=== PATIENT | male | born 2000 | race Caucasian/White ===

== ENCOUNTER 2024-04-16 02:44 | Emergency (ER) | payer BC, SELFPAY ==
--- NOTE | ~2024-04-16 | CT_ITS ---
EXAMINATION: CT abdomen pelvis w con DATE: 04/16/2024 04:47 INDICATION: Left lower quadrant abdominal pain TECHNIQUE: Computed tomography (CT) of the abdomen and pelvis was performed with 100 mL Omnipaque-350 intravenous contrast. Automated exposure control and iterative reconstruction technique were employe d. The dose-length product was 549.41 mGy-cm. COMPARISON: None FINDINGS: Lung bases are clear. Heart size normal. No pericardial or pleural effusion. Periportal edema in the liver. Gallbladder, spleen, pancreas, bilateral adrenal glands and right kidney are normal. 3 mm ston e in the distal left ureter approximately 1.5 cm from the ureterovesicular junction which results in mild left hydroureteronephrosis, delayed left nephrogram and mild periureteral stranding. Right kidne y is normal. Bowels including the appendix are normal. Decompressed bladder is unremarkable. No free intraperitoneal gas or fluid. No pathologically enlarged abdominal or pelvic lymphadenopathy. Mild th oracolumbar dextrocurvature. IMPRESSION: 1. Obstructing 3 mm distal left ureteral stone with mild left hydronephrosis. There is some perirenal stranding correlate with urinalysis to exclude associated ascending urinary tract infection. 2. Mild periportal edema which can be seen with pyelonephritis/upper urinary tract infections, acute hepatitis, congestive heart failure, cholangitis and aggressive fluid resuscitation. Reviewed, dictated and finalized at location A. BILITY BENEFITS SPECIALIST IMPRESSION: 1. Obstructing 3 mm distal left ureteral stone with mild left hydronephrosis. T here is some perirenal stranding correlate with urinalysis to exclude associate d ascending urinary tract infection. 2. Mild periportal edema which can be seen with pyelonephritis/upper urinary tr act infections, acute hepatitis, congestive heart failure, cholangitis and aggr essive fluid resuscitation.
[2024-04-16 02:45] VITALS: BP 146/83; PULSE 71; RESP 16; TEMP 36.3; O2SAT 100
[2024-04-16] MEDS: ONDANSETRON INJ 4 MG/2 ML VIAL IV PUSH (03:53)
[2024-04-16] MEDS: KETOROLAC 15 MG/ML VIAL (*BKC) IV PUSH ×2 (03:53→05:29)
[2024-04-16] MEDS: SODIUM CHLORIDE 0.9% IV 1,000 ML 999 ML IV CONT (03:53)
[2024-04-16 03:55] LABS: Basophils Percent Auto 0.5 % (0.2-1.2); Eosinophils Absolute Auto 0.1 K/mm3 (0-0.3); Eosinophils Percent Auto 0.8 % (0-4.4); Hematocrit 43.2 % (42.0-52.0); Hemoglobin 14.6 g/dL (14.0-18.0); Immature Granulocyte Absolute 0.01 K/mm3 (0.00-0.031); Immature Granulocyte Percent A 0.1 % (0-0.5); Lymphocytes Absolute Auto 3.11 K/mm3 (0.9-3.2); Lymphocytes Percent Auto 42.4 % (18.3-44.2); Mean Corpuscular HGB Conc 33.8 g/dl (32-36); Mean Corpuscular Hemoglobin 31.1 pg (26-34); Mean Corpuscular Volume 92.1 fl (80-100); Mean Platelet Volume 9.8 fl (7.4-10.4); Monocytes Absolute Auto 0.6 K/mm3 (0.1-0.6); Monocytes Percent Auto 7.8 % (2.6-8.5); Neutrophils Absolute Auto 3.6 K/mm3 (1.3-6.7); Neutrophils Percent Auto 48.4 % (45.5-73.1); Platelet Count Result 236 k/mm3 (150-375); Red Blood Count 4.69 M/mm3 (4.6-6.20); Red Cell Distribution Width 12.6 % (11.5-14.5); White Blood Count 7.3 K/mm3 (4.5-10.0)
[2024-04-16 04:03] LABS: Add Urine Microscopic? YES; Appearance Urine Clear (Clear); Bacteria Urine None Seen /hpf; Bilirubin Urine Negative (Negative); Blood Urine Non-Hemolyzed Trace (Negative); Color Urine Yellow (Yellow); Glucose Urine UA Negative (Negative); Ketones Urine Trace mg/dL (Negative); Leukocyte Esterase Ur Trace LEU/UL (Negative); Nitrate Urine Negative (Negative); Non Pathogenic Casts 0-2; Protein Urine Trace mg/dL (Negative); Specific Grav Ur 1.029 (1.001-1.035); Squamous Epithelial Cell Urine None Seen /hpf (Few); WBC Urine 21-50 /hpf (0-3); pH Urine 5.5 (5.0-9.0)
--- OUTSIDE RECORDS SUMMARY | 2024-04-16 04:06 | XMS_ITS | Clinical Summary ---
Author Organization [facility] Address [facility] [place] [address] Care Team Providers Care Customer Care Consultant Name Role Phone Manuela Holliday MD Primary Care Provider [phone] Allergies Active Allergy Reactions Criticality Noted Date Comments Diphenhydramine Other (see comment) 04/30/2014 lowers my seizure thresh hold Medications loratadine-pseudoep hedrine ER (CLARITIN-D 12 HOUR) 5-120 MG 12 hr tabletIndications:A cute sinusitis, recurrence not specified, unspecified location Take 1 tablet by mouth 2 (two) times daily. 28 tablet 0 Active Pseudoephedrine-Leonard taminophen (COLD TABLETS OR) Take by mouth as needed. Active ondansetron 4 MG disintegrating tablet Take 1 tablet (4 mg total) by mouth every 8 (eight) hours as needed for Nausea. 20 tablet 2 Active citalopram (CELEXA) 20 MG tablet Take 1 tablet (20 mg total) by mouth daily. 2 Active Active Problems No known active problems Resolved Problems Problem Noted Date Diagnosed Date Resolved Date Achilles tendonitis 06/01/2017 08/15/19 18 Plantar fasciitis 06/01/2017 08/14/2017 Immunizations Name Administration Dates Next Due Dtap (Generic) 10/15/2005, 2,2000,07/19,2000 Fluzone (IIV3, Trivalent, 0. 5 ML Prefilled Syringe) 11/07/2023 Fluzone 6 Months+ Quad (0.5 mL Prefilled Syringe) 03/11/2022,11/28/2020,12/09/2019,12/08 HPV GARDASIL 9-VALENT 02/26/2015, 015,09/25/2014,08/24 Hepatitis B (Generic Peds) 04/02/2001,2000 ,2000 Hib (Generic) 04/02/2001,2000,2000 Influenza (FluMist) 01/29/2014 Influenza (Generic) 12/14/2015 Influenza Adult (Generic) 12/25/2022,12/08/2018, 12/14/2015 MMR (Generic) 10/15/2005,07/05/2001 Menactra 09/22/2017 Meningococcal (Menactra) 09/24/2011 PFIZER COVID-19 (ORIGINAL FO RMULATION, PURPLE CAP) mRNA, LNP-S, PF, 30 MCG/0.3 ML DOSE 06/06/2020,05/16/2020 Pneumococcal (Prevnar 13) 2000,2000, 2000 Polio Ipv (Generic) 10/15/2005, 1,2000,04/02 Tdap (Boostrix) 11/19/2023 Tdap (Generic) 12/25/2022,06/16/2021,09/24/2011 Varicella (Generic) 10/15/2005,04/02/2001 Family History Relation Status Comments Father Alive Mother Alive Social History Tobacco Use Types Packs/Day Years Used Date Smoking Tobacco: Never Passive Smoke Exposure: Never Smokeless Tobacco: Never Tobacco Cessation:Counseling Given: No Comments:na Alcohol Use Standard Drinks/Week Comments Yes 0 (1 standard drink = 0.6 oz pur e alcohol) PHQ-2 Answer Date Recorded Patient Health Questionnaire-2 Score 0 11/19/2023 Sex and Gender Information Value Date Recorded Sex Assigned at Not on file 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 Gender Identity Not on file Sexual Orientation Not on file Last Filed Vital Signs Vital Sign Reading Time Taken Comments Blood Pressure 122/82 11/19/2023 4:20 PM CDT Pulse 81 11/19/2023 4:20 PM CDT Temperature 36.9 C (98.5 F) 11/19/2023 4:20 PM CDT Respiratory Rate 21 11/19/2023 4:20 PM CDT Oxygen Saturation 97% 11/19/2023 4:20 PM CDT Inhaled Oxygen Concentration - - Weight 93 kg (205 lb) 03/11/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 Height 185.4 cm (6' 1 ) 03/11/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 Body Mass Index 27.05 03/11/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 Plan of Treatment Health Maintenance Due Date Last Done Comments Annual Physical 2003 Hepatitis C 2018 COVID-19 Vaccine ( season) 2023 06/06/2020, 05/16/2020 PHQ-2 (Physician Jewett) 02/24/2024 11/19/2023 PHQ-2 (Physician Jewett) 11/18/2024 11/19/2023 DTaP, Tdap and Td Vaccines (10 - Td or Tdap) 11/18/2033 11/19/2023, 12/25/2022, 06/16/2021, Additional history exists Pneumococcal Vaccine: Pediatrics (0 to 5 Years) and At-Risk Patients (6 to 64 Years) Aged Out 2000, 2000, 2000 No longer eligible based on patient's age to complete this topic Hepatitis B Vaccines Completed 04/02/2001, 2000, 2000 HPV Vaccines Completed 02/26/2015, 04/2014, 09/25/2014, Additional history exists Meningococcal Vaccine Completed 09/22/2017, 012 Influenza Adult Completed 11/07/2023, 03/2022, 03/11/2022, Additional history exists Meningococcal B Vaccine Aged Out No l onger eligible based on patient's age to complete this topic RSV Immunizations Under 20 Months Aged Out No longer eligible based on patient's age to complete this topic Insurance [employer] Care Teams Customer Care Consultant Relationship Specialty Start Date End Date Manuela Holliday MD [address] [place] [address] PCP - General INTERNAL MEDICINE 03/21/21
--- OUTSIDE RECORDS SUMMARY | 2024-04-16 04:06 | XMS_ITS | Clinical Summary ---
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 Gender Identity Not on file Sexual Orientation Not on file Plan of Treatment Health Maintenance Due Date Last Done Comments Hepatitis C Virus (HCV) Screening 2000 Meningococcal B Immunization (1 of 2 - Standard) 2016 Hepatitis B Immunization (1 of 3 - 19+ 3-dose series) 2019 SARS-COV-2 Immunization (3 - 2023- season) 2023 06/06/2020, 05/16/2020 Respiratory Syncytial Virus (RSV) Immunization (Adult) (1 - 1-dose 75+ series) 2075 Pneumococcal Immunization Combined Aged Out 2000, 2000, 2000 No longer eligible based on patient's age to complete this topic Human Papillomavirus (HPV) Immunization Completed 02/26/2015, 10/26/2014, 09/25/2014, Additional history exists Meningococcal Immunization (ACWY) Completed 09/22/2017, 09/24/2011 Influenza Immunization Completed , 12/25/2022, 03/11/2022, Additional history exists TdaP Immunization Completed 11/19/2023, , 06/17/2021, Additional history exists Rotavirus Immunization Aged Out No lo nger eligible based on patient's age to complete this topic Care Teams Pattern Scratcher Relationship Specialty Start Date End Date Manuela Holliday MD [address] [address] PCP - General Internal Medicine 01/06/24
[2024-04-16 04:12] LABS: Alanine Aminotransferase 29 U/L (6-50); Albumin Level 4.3 g/dL (3.5-5.1); Alkaline Phosphatase 51 U/L (38-126); Anion Gap 9 mmol/L (4-12); Aspartate Amino Transferase 24 U/L (17-59); Bilirubin,Total 0.6 mg/dL (0.2-1.3); Blood Urea Nitrogen 24 mg/dL (9-20); Calcium 9.1 mg/dL (8.4-10.2); Carbon Dioxide 27 mmol/L (22-30); Chloride 105 mmol/L (98-107); Estimated CRCL calculation 114 ml/min; Estimated Glomerular Filt Rate > 60; Glucose 134 mg/dL (65-110); Lipase 88 U/L (23-300); Potassium 3.3 mmol/L (3.4-5.0); Sodium 141 mmol/L (137-145)
--- NOTE | 2024-04-16 04:30 | ED_ITS ---
HPI - Abdominal Pain General Chief Complaint: Abdominal Pain Stated Complaint: left abd pain Time Seen by Provider: 04/16/24 03:35 History of Present Illness HPI narrative: Patient is a 24-year-old male who presents emergency department this evening complaining of left lower quadrant abdominal pain which started suddenly approximately 2 hours prior to arrival. Patient denies any similar symptoms in the past, denies any previous abdominal surgeries, denies any history of kidney stones and denies any dysuria or hematuria but states that he has been having some urinary urgency. Denies any recent illness, admits 1 vomiting episode secondary to pain. Denies any fevers or chills. Related Data Allergies Allergy/AdvReac Type Severity Reaction Status Date / Time carrot Allergy Mild Rash Verified 04/16/24 03:58 APPLES Allergy Mild Rash Uncoded 04/16/24 03:58 Review of Systems 2 Review of Systems: All systems are reviewed and are negative unless stated otherwise in the HPI. Exam 2 Narrative: General: Alert, awake, afebrile, in moderate distress secondary to pain. HEENT: PERRL, no rhinorrhea, no post nasal drip, oropharynx clear. Neck: Trachea midline, no JVD, no lymphadenopathy. Cardiovascular: Regular rate and rhythm, no murmurs, rubs or gallops, no peripheral edema. Respiratory: Clear to auscultation bilaterally, no tachypnea, no wheezing, no rhonchi, no rubs, no respiratory distress. Abdomen: Soft, tenderness palpation over the left lower quadrant, nondistended, no rebound, no guarding, no peritoneal signs. Musculoskeletal: No joint swelling or deformity, normal muscle tone. Skin: No rashes or petechia, no signs of infection. Psychiatric: Alert and oriented, normal behavior and judgment for situation. Neurological: Alert and oriented to person, place, and time. Follows all commands. No focal deficits, speech is clear and fluent. Course Vital Signs Vital signs: Vital Signs Temperature 97.3 F L 04/16/24 02:45 Pulse Rate 71 04/16/24 02:45 Respiratory Rate 16 04/16/24 02:45 Blood Pressure 146/83 H 04/16/24 02:45 Pulse Oximetry 100 04/16/24 02:45 Temperature 97.3 F L 04/16/24 02:45 Pulse Rate 74 04/16/24 06:47 Respiratory Rate 16 04/16/24 06:47 Blood Pressure 131/85 04/16/24 06:47 Pulse Oximetry 100 04/16/24 06:47 MDM - Abdominal Pain MDM Narrative Medical decision making narrative: The patient was evaluated by myself in the emergency department. History is obtained from patient who is an independent historian and physical exam was performed. External medical records were reviewed at this time. IV was established and pertinent tests were ordered. Patient was administered 1 L IV fluid bolus with normal saline, 4 mg IV Zofran and 15 mg of IV Toradol which initially result pain, however, on repeat assessment the patient, patient is having pain again and 4 mg of IV morphine was administered at this time. Laboratory results obtained revealing no acute process. Urinalysis revealed trace ketones, 3-5 RBC and 21-50 white blood cells. On repeat assessment of the patient, patient is now having pain again, stating that the morphine did not touch his pain and that the Toradol worked significantly better at this time patient was administered a 2nd dose of Toradol 15 mg IV. Imaging studies obtained included CT abdomen pelvis with IV contrast which was independently interpreted by me revealing: IMPRESSION: 1. Obstructing 3 mm distal left ureteral stone with mild left hydronephrosis. There is some perirenal stranding correlate with urinalysis to exclude associated ascending urinary tract infection. 2. Mild periportal edema which can be seen with pyelonephritis/upper urinary tract infections, acute hepatitis, congestive heart failure, cholangitis and aggressive fluid resuscitation. Patient was informed of these findings at bedside and that he will be sent home with scripts for Flomax, Zofran, ibuprofen, [place] and cephalexin to take at home as prescribed to help pass his kidney stone and for his UTI and patient is agreeable with this plan. Periportal edema likely secondary to UTI as patient has normal liver function enzymes and normal bilirubin making hepatitis/cholangitis less likely. Patient also has no clinical features of CHF. He was also instructed that he will need to follow-up with urology as an outpatient and patient is in agreement. Differential diagnosis considerations include kidney stones/renal colic, pyelonephritis, appendicitis, diverticulitis. Comorbidities impacting this visit include none. I have evaluated and discussed social determinants of health with the patient that could potentially impact subsequent diagnosis and treatment plans. On repeat assessment of the patient, reevaluation revealed that the patient is doing well and is in no acute distress. Patient symptoms have improved since he arrived to our emergency department. Repeat vital signs were all reviewed and noted to be stable. Differential diagnosis and treatment plan were discussed with the patient at bedside. Patient agrees with discussion and after shared medical decision making agrees with discharge. All questions were answered to the patient's satisfaction. Patient will follow up with Urology in 3-5 days. Patient was provided with strict return precautions and instructed to return to the emergency department if any new or worsening symptoms develop. The patient was discharged in stable condition. Lab Data 04/16/24 03:49 04/16/24 03:48 Labs: Lab Results 04/16/24 04/16/24 Range/Units 03:48 03:49 WBC 7.3 (4.5-10.0) K/mm3 RBC 4.69 (4.6-6.20) M/mm3 Hgb 14.6 (14.0-18.0) g/dL Hct 43.2 (42.0-52.0) % MCV 92.1 (80-100) fl MCH 31.1 (26-34) pg MCHC 33.8 (32-36) g/dl RDW 12.6 (11.5-14.5) % Plt Count 236 (150-375) k/mm3 MPV 9.8 (7.4-10.4) fl Immature Gran % (Auto) 0.1 (0-0.5) % Neut % (Auto) 48.4 (45.5-73.1) % Lymph % (Auto) 42.4 (18.3-44.2) % [place] % (Auto) 7.8 (2.6-8.5) % Eos % (Auto) 0.8 (0-4.4) % Baso % (Auto) 0.5 (0.2-1.2) % Lymph # (Auto) 3.11 (0.9-3.2) K/mm3 [place] # (Auto) 0.6 (0.1-0.6) K/mm3 Eos # (Auto) 0.1 (0-0.3) K/mm3 Baso # (Auto) 0.0 (0.0-0.1) K/mm3 Abs Immat Gran (auto) 0.01 (0.00-0.031) K/mm3 Absolute Neuts (auto) 3.6 (1.3-6.7) K/mm3 Absolute Nucleated RBC 0.000 (0.0-0.012) K/mm3 Nucleated RBC % 0.0 (0.0-0.2) % Sodium 141 (137-145) mmol/L Potassium 3.3 L (3.4-5.0) mmol/L Chloride 105 (98-107) mmol/L Carbon Dioxide 27 (22-30) mmol/L Anion Gap 9 (4-12) mmol/L BUN 24 H (9-20) mg/dL Creatinine 1.00 (0.7-1.3) mg/dL Estim Creat Clear Calc 114 ml/min Estimated GFR > 60 (59 - ) Glucose 134 H (65-110) mg/dL Calcium 9.1 (8.4-10.2) mg/dL Total Bilirubin 0.6 (0.2-1.3) mg/dL AST 24 (17-59) U/L ALT 29 (6-50) U/L Alkaline Phosphatase 51 (38-126) U/L Total Protein 7.0 (6.3-8.2) g/dL Albumin 4.3 (3.5-5.1) g/dL Lipase 88 (23-300) U/L Urine Color Yellow (Yellow) Urine Appearance Clear (Clear) Urine pH 5.5 (5.0-9.0) Ur Specific [place] 1.029 (1.001-1.035) Urine Protein Trace (Negative) mg/dL Urine Glucose (UA) Negative (Negative) mg/dL Urine Ketones Trace H (Negative) mg/dL Ur Blood (Man) Non-hemolyzed trace (Negative) Urine Nitrate Negative (Negative) Urine Bilirubin Negative (Negative) Urine Urobilinogen 1.0 (<2.0) mg/dL Leukocyte Esterase Rfl Trace H (Negative) KYAW/UL Urine RBC 3-5 H (0-2) /hpf Urine WBC 21-50 H (0-3) /hpf Ur Squamous Epith Cells None seen (Few) /hpf Urine Bacteria None seen /hpf Urine Casts 0-2 Influenza A (RT-PCR) Negative (Negative) Influenza B (RT-PCR) Negative (Negative) RSV (RT-PCR) Negative (Negative) SARS-CoV-2 RNA (RT-PCR) Negative (Negative) Imaging Data Radiologist's impression: ITS Impressions Abdomen/Pelvis CT 04/16/24 06:22 IMPRESSION: 1. Obstructing 3 mm distal left ureteral stone with mild left hydronephrosis. There is some perirenal stranding correlate with urinalysis to exclude associated ascending urinary tract infection. 2. Mild periportal edema which can be seen with pyelonephritis/upper urinary tract infections, acute hepatitis, congestive heart failure, cholangitis and aggressive fluid resuscitation. Discharge Plan Discharge Clinical Impression: Kidney stone on left side Patient Disposition: Home, Self-Care Condition: Improved Instructions: Antibiotic Form, Kidney Stones (ED), Urinary Tract Infection in Men (DC) Additional Instructions: Please follow-up with urology were provided with within the next 3-5 days. Return to the ED if any new or worsening symptoms develop. Use the prescribed medications as instructed to help passed kidney stone. You had white blood cells in your urine and secondary to this your placed on an antibiotic to take twice a day for the next 5 days. Patient Language: Maltese Prescriptions: New hydrocodone-acetaminophen 5-325 mg tablet 1 tablet PO Q8H PRN (Reason: pain) Qty: 14 0RF ibuprofen 400 mg tablet 400 mg PO Q6H PRN (Reason: pain) Qty: 30 0RF tamsulosin [Flomax] 0.4 mg capsule 0.4 mg PO DAILY Qty: 14 0RF ondansetron 4 mg tablet,disintegrating 4 mg PO Q8H PRN (Reason: nausea and vomiting) Qty: 14 0RF cephalexin 500 mg capsule 500 mg PO Q12H 5 Days Qty: 10 0RF Follow-up/Referrals: Mello Josue MD [Physician] - 3 Days PHYSICIAN,HEARING SCREENER [Primary Care Provider] - Time of Disposition: 06:44
[2024-04-16 04:31] LABS: Influenza A QL RT-PCR Negative (Negative); Influenza B QL RT-PCR Negative (Negative); RSV RNA, RT-PCR Negative (Negative); SARS-CoV-2 RNA PCR Negative (Negative)
[2024-04-16] MEDS: MORPHINE SULFATE (*CRX) 4 MG/ML INJ IV PUSH (04:37)
[2024-04-16 05:30] VITALS: BP 131/90; PULSE 63; RESP 17; O2SAT 100
[2024-04-16 06:47] VITALS: BP 131/85; PULSE 74; RESP 16; O2SAT 100
== END 2024-04-16 06:54 | disposition home or self-care (01) ==
PROVIDERS: Emergency Provider Emergency Medicine
DX: N13.2 Hydronephrosis with renal and ureteral calculous obstruction (principal); Z20.822 Contact with and (suspected) exposure to COVID-19
CPT/HCPCS: 36415; 74177; 80053; 81001; 83690; 85025; 87086; 87637; 96361; 96374; 96375; 96376; 99284; J1885; J2270; J2405; J7030; Q9967